=== PATIENT | female | born 1985 | race Two or more races ===

== ENCOUNTER 2018-03-02 15:03 | Inpatient (IN) | payer OTHER ==
[~2018-03-02] VITALS: Ht 170.2 cm; Wt 81.6 kg
[2018-03-05] VITALS (9 sets, daily range): BP systolic 129–156; BP diastolic 79–96; Ht 170.2 cm; Wt 81.6 kg
[2018-03-05] MEDS ORDERED: LR(*) 1000 ML BAG 1,000 ML IV PRN (00:39)
[2018-03-05] MEDS ORDERED: DLR(*) 1000 ML BAG 1,000 ML IV PRN (00:39)
[2018-03-05] MEDS ORDERED: OXYTOCIN 30 UNIT/D5LR 500 ML 500 ML IV PRN (01:12)
[2018-03-05] MEDS ORDERED: ceFAZolin(*) 2GM/D5W 50ML 50 ML IVPB PRN (01:12)
[2018-03-05] MEDS ORDERED: LR(*) 1000 ML BAG 1,000 ML IV SCH (01:12)
[2018-03-05] MEDS ORDERED: FAMOTIDINE(*) 20MG/50ML PREMIX 50 ML IVPB PRN (01:12)
[2018-03-05] MEDS ORDERED: LIDOCAINE 1% LOCAL 300 MG/30ML INJ PRN (01:15)
[2018-03-05] MEDS ORDERED: cefOXitin/DEX(*) 2GM/50ML PREM 50 ML IVPB PRN (01:15)
[2018-03-05] MEDS ORDERED: METOCLOPRAMIDE 10 MG/2 ML SDV IVP PRN (01:15)
[2018-03-05] MEDS ORDERED: fentaNYL CITR 100 MCG/2 ML AMP IVP PRN (01:15)
[2018-03-05] MEDS ORDERED: LIDOCAINE/SOD BICARB 8.4% SYR SC PRN (01:15)
--- NOTE | 2018-03-05 01:34 | History & Physical ---
History of Present Illness EDC per LMP: Mar 18, 2018 Chief Complaint Labor History of Present Illness 32yo at 38w1d presents in spontaneous labor. She started marquez yesterday evening. She then had SROM ~90 minutes prior to arriving. No vaginal bleeding. +FM. No preeclampsia symptoms. PNR reviewed. c/b Rh negative. She recently transferred from [place], [place]. 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 History Patient's Blood Type: O Negative Rubella Status: Immune Group B Strep Screen: Negative Obstetrical History: Primip Past Medical History: PMH: None PSH: Tonsillectomy, bunionectomy Social History: No T/E/D. . Review of Systems Constitutional: No Fever Neurological: No Syncope Eyes: No Vision Change ENT: No Hearing Loss Cardiovascular: No Chest Pain Respiratory: No Shortness of Breath Gastrointestinal: No Nausea, No Vomiting, No Diarrhea Genitourinary: No Dysuria Musculoskeletal: No Pain Psychiatric: No Depression, No Anxiety Exam General Exam Vital Signs VS reviewed. BP elevated but unsure if due to pain. Continue to monitor. General Apperance: Alert/Awake/No Acute Distress Neuro: No Gross deficits Eyes: Normal Extraocular Movement & Vison ENT: Normal Cardiovascular: Regular Rate and Rhythm Respiratory: No Respiratory Distress, Clear to Auscultation Abdomen: Gravid - Non-Tender : Normal Musculoskeletal: No Weakness/Pain Extremities: No Cyanosis,Clubbing or Edema Integumentary: Skin Intact without Lesions or Rash Psychological: Alert & Oriented X3, Appropriate Mood & Affect Vaginal Discharge/Fluid?: Clear Fluid Cervical Dialation: 6 Cervical Effacement (%): 100 Cervical Consistency: Soft Cervical Position: Mid Station: -1 Presentation: Vertex Uterine Contractions(Q min): 2 Uterine Contraction Strength: Strong UC Resting Tone: Soft Fetus Feeling Movement?: Yes FHT Category: I Assessment and Plan Problems: (1) Spontaneous onset of labor Assessment & Plan: Pt presented in labor. Upon admission to L&D, she had a large deceleration with a vasovagal reaction. Since that time, FHT are better but not the best variability. She is advanced dilated and in active labor. Monitor closely. Anticipate . (2) Rh negative status during Assessment & Plan: Rhophylac evaluation PP. (3) 38 weeks gestation of Problem Qualifiers (1) Rh negative status during : Trimester: third trimester Qualified Codes: O09.893 - Supervision of other high risk pregnancies, third trimester; Z67.91 - Unspecified blood type, rh negative ELVIRA VILLAR MD Mar 05, 2018 01:34
[2018-03-05 02:40] LABS: PLATELET COUNT, AUTOMATED 145 K/uL (150-450)
[2018-03-05] MEDS ORDERED: MEASLES,MUMP,RUBELLA VAC 0.5ML SC ONE (02:55)
[2018-03-05] MEDS ORDERED: MAGNESIUM HYDROXIDE* 30ML UDCP PO PRN (02:55)
[2018-03-05] MEDS ORDERED: APAP/HYDROCODONE 325/5 TAB PO PRN (02:55)
[2018-03-05] MEDS ORDERED: BENZOCAINE 20% 60 ML BTL TP PRN (02:55)
[2018-03-05] MEDS ORDERED: DIPHTH/TETANUS/ACEL. PERTUSSIS IM ONE (02:55)
[2018-03-05] MEDS ORDERED: HYDROCORTISONE 2.5% CR 30GM TB PR PRN (02:55)
[2018-03-05] MEDS ORDERED: ACETAMINOPHEN 325 MG TAB PO PRN (02:55)
[2018-03-05] MEDS ORDERED: INFLUENZA VIRUS VAC 0.5ML SYR IM ONLY ONE (02:55)
[2018-03-05] MEDS ORDERED: LANOLIN OINT 7 GM TUBE TP PRN (02:55)
[2018-03-05] MEDS ORDERED: GLYCERIN/WITCH HAZEL LEAF 1 PK TOP PRN (02:55)
--- NOTE | 2018-03-05 02:59 | OB Delivery Note ---
Delivery Note Vaginal Delivery Type: Spont. Vaginal Delivery Delivery Date: Mar 05, 2018 Delivery Time: 02:48 Estimated Gestational Age(wks): 38.1 Labor Stage III (minutes): 11 Sex: Female Infant Weight (gms): 2970 (6#9oz) Apgars: 1 Minute (8), 5 Minute (9) Estimated Blood Loss: 200 Delivery Complications: Nuchal Cord Notes: JEWEL position Information Tech in Attendence: ELVIRA Cervantes MD Mar 05, 2018 02:59
[2018-03-05] MEDS ORDERED: DOXY25TA54 PO (03:13)
[2018-03-05] MEDS ORDERED: PREN-127 PO (03:13)
[2018-03-05] MEDS ORDERED: IBUP800T37 PO (03:24)
[2018-03-05] MEDS ORDERED: LOR5/325 PO (03:24)
--- NOTE | 2018-03-05 04:07 | OB/GYN Progress Note ---
OB Subjective Progress Notes Subjective Pt is feeling well. Working on . OB Objective Physical Exam Vital Signs Date Time Temp Pulse Resp B/P (MAP) Pulse Ox O2 Delivery O2 Flow Rate FiO2 03/05/18 01:30 98.2 84 24 156/82 (106) 94 Room Air General Appearance: Alert/Awake/No Acute Distress Neurological: No Gross deficits Eyes: Normal Extraocular Movement & Vison Cardiovascular: Normal Rhythm & Peripheral Pulses, Regular Rate and Rhythm Respiratory: No Respiratory Distress, Clear to Auscultation Abdomen: Soft, Non-Tender, Non-Distended, Fundus Firm Extremities: No Cyanosis,Clubbing or Edema Integumentary: Skin Intact without Lesions or Rash Psychological: Alert & Oriented X3, Appropriate Mood & Affect Result Diagram: 03/05/18 0121 Assessment and Plan Problems: (1) examination following vaginal delivery Assessment & Plan: PPD#0 s/p . She continues to have elevated BP since delivery. Will evaluate for preeclampsia with Pr:Cr and labs. (2) Rh negative status during Assessment & Plan: Rhophylac evaluation PP. Problem Qualifiers (1) Rh negative status during : Trimester: third trimester Qualified Codes: O09.893 - Supervision of other high risk pregnancies, third trimester; Z67.91 - Unspecified blood type, rh negative ELVIRA VILLAR MD Mar 05, 2018 04:07
[2018-03-05] MEDS: IBUPROFEN 800 MG TAB PO SCH ×3 (05:50→20:32)
[2018-03-05] MEDS ORDERED: CALCIUM CARBONATE 500 MG CHEW ONE (07:26)
--- NOTE | 2018-03-05 08:41 | DELIVERY NOTE ---
DELIVERY DATE: March 05, 2018 SURGEON: Kailyn Angulo MD ANESTHESIA: None. PREOPERATIVE DIAGNOSIS: Intrauterine at 38 weeks and 1 day presenting in spontaneous active labor. POSTOPERATIVE DIAGNOSIS: 1. Intrauterine at 38 weeks and 1 day presenting in spontaneous active labor. 2. Delivery of viable female at 0248 hours weighing 2970 grams, or 6 pounds 9 ounces, with Apgars of 8 at one minute and 9 at five minutes. PROCEDURE Spontaneous vaginal delivery. ESTIMATED BLOOD LOSS 200 mL. INDICATIONS This patient is a 32-year-old 2, para 0-0-1-0 who presented at 38 weeks and 1 day in spontaneous active labor. She experienced spontaneous rupture of membranes 90 minutes prior to arrival. At the time of presentation, she was 6, 100 and -1 station. She rapidly progressed to complete and was allowed to start pushing. She was able to bring the infant's vertex to the perineum. PROCEDURE The patient properly identified and placed in dorsolithotomy position. She was prepped and draped in the usual fashion for vaginal delivery. She was asked to push and was able to deliver the 's vertex spontaneously in the GUIDRY position over an intact perineum. A nuchal cord was noted and delivered through. There was a compound presentation of the posterior arm, which was the 's left arm. This was reduced across the anterior chest of the followed by delivery of the anterior shoulder. The remainder of the delivered easily without difficulty. The infant did have spontaneous cry and spontaneous movement of all four extremities. The infant was dried, stimulated and passed to the mother's abdomen in good condition. The oropharynx and nasopharynx were bulb suctioned. After two minutes, the cord was clamped x2 and cut by the father of the baby. Cord blood was obtained and passed off the table. At the same time, Pitocin was started in IV fluid to help firm the uterus. Fundal massage and gentle downward traction were applied to deliver the placenta spontaneously intact. This was passed off the table. Examination of the cervix, vaginal vault and perineum revealed no lacerations. All sponge and needle counts were correct at the end of the procedure. The patient tolerated the procedure well and recovered in labor and delivery with the . ADEEL
[2018-03-05] MEDS: DOCUSATE CALCIUM 240 MG CAP PO SCH ×2 (09:07→20:32)
[2018-03-06] MEDS: IBUPROFEN 800 MG TAB PO SCH ×2 (03:54→12:36)
[2018-03-06 03:55] VITALS: BP 128/77
[2018-03-06 08:50] VITALS: BP 137/85
--- NOTE | 2018-03-06 08:57 | OB/GYN Progress Note ---
OB Subjective Progress Notes Subjective Doing well. No problems, no headaches or issues. GI: NEG Nausea : Voiding Well Pain: Mild OB Objective Physical Exam Vital Signs Date Time Temp Pulse Resp B/P (MAP) Pulse Ox O2 Delivery O2 Flow Rate FiO2 03/06/18 03:55 98.2 72 14 128/77 (94) 95 Room Air Intake and Output 03/06/18 07:00 Intake Total 350 ml Balance 350 ml Intake Oral 350 ml # Voids 2 General Appearance: Alert/Awake/No Acute Distress Neurological: No Gross deficits Eyes: Normal Extraocular Movement & Vison Cardiovascular: Normal Rhythm & Peripheral Pulses, Regular Rate and Rhythm Respiratory: No Respiratory Distress, Clear to Auscultation Abdomen: Soft, Non-Tender, Non-Distended, Fundus Firm Extremities: No Cyanosis,Clubbing or Edema Integumentary: Skin Intact without Lesions or Rash Psychological: Alert & Oriented X3, Appropriate Mood & Affect Result Diagram: 03/06/18 0453 03/06/18 0453 Assessment and Plan 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 Discussed signs or symptoms of preeclampsia cautioned to call if they occur. She has a BP cuff at home and will monitor he pressures. (2) Spontaneous onset of labor KAILA WITT MD Mar 06, 2018 08:57
--- NOTE | 2018-03-06 08:58 | OB/GYN Discharge Summary ---
Discharge Summary Reason for Hosp/Final Diag: (1) 38 weeks gestation of Hospital Course & Plan: BP was mildly elevated while in labor and have been stable out of labor. Discussed signs or symptoms of preeclampsia cautioned to call if they occur. She has a BP cuff at home and will monitor he pressures. (2) Spontaneous onset of labor Lates Vital Signs Vital Signs Date Time Temp Pulse Resp B/P (MAP) Pulse Ox O2 Delivery O2 Flow Rate FiO2 03/06/18 03:55 98.2 72 14 128/77 (94) 95 Room Air Weight (Pounds): 180 Result Diagram: 03/06/1845203/06/18452 Condition: Improved Discharge: Home, Self Detention Meds Active Scripts Hydrocodone Bit/Acetaminophen (HYDROCODON-ACETAMINOPHEN 5-325) 1 Each Tablet, 1 EACH PO Q4-6H PRN for pain, #10 TAB 0 Refills Prov:ELVIRA VILLAR MD 03/05/18 Reported Medications Doxylamine Succinate (UNISOM SLEEP AID) 25 Mg Tablet, 25 MG PO 03/05/18 Vits W-Ca,Fe,Fa(<1MG) ( VITAMINS) 1 Each Tablet, 1 EACH PO DAILY, TAB 03/05/18 Follow up Referrals: SPECIALTIES OPERATOR - In Two Weeks @ [facility] Follow up with: Dr. Merino [phone] Follow up in: 6 wks PP or PO Discharge Diet: As Tolerates Discharge Activity: As Tolerates, No Heavy Lifting x 6 wks, No Heavy Lifting > 10lb, Pelvic Rest Copies to: KAILA MERINO MD ; KAILA MERINO MD Mar 06, 2018 08:58
[2018-03-06] MEDS: DOCUSATE CALCIUM 240 MG CAP PO SCH (09:16)
== END 2018-03-06 12:45 | disposition home or self-care (01) | DRG 775 ==
LOC: OB 15:03 → UNDOADMIN 15:03 → OB 03-05 00:37
PROVIDERS: ADMIT Obstetrics & Gynecology; ATTEND Obstetrics & Gynecology
PROC: 10E0XZZ Delivery of Products of Conception, External Approach (ICD-10-PCS; principal; 2018-03-05)
DX: O69.81X0 Labor and delivery complicated by cord around neck, without compression, not applicable or unspecified (principal); O36.0130 Maternal care for anti-D [Rh] antibodies, third trimester, not applicable or unspecified; O32.6XX0 Maternal care for compound presentation, not applicable or unspecified; O76 Abnormality in fetal heart rate and rhythm complicating labor and delivery; R55 Syncope and collapse; Y92.230 Patient room in hospital as the place of occurrence of the external cause; Z37.0 Single live birth; Z3A.38 38 weeks gestation of pregnancy
CPT/HCPCS: 36415; 81001; 82040; 82247; 82310; 82374; 82435; 82565; 82570; 82947; 84075; 84132; 84155; 84156; 84295; 84450; 84460; 84520; 85025; 85027; 86850; 86870; 86900; 86901; J2590

== ENCOUNTER → 2018-10-15 | Outpatient (CLI) | payer OTHER ==
[2018-03-05 01:30] VITALS: BMI 28.2
[~2018-10-15] MED LIST: DOXY25TA54 PO; IBUP800T37 PO; LOR5/325 PO; PREN-127 PO
== END ==
LOC: LAB 15:10
DX: Z11.1 Encounter for screening for respiratory tuberculosis (principal)
CPT/HCPCS: 36415; 86480